=== PATIENT | female | born 1945 | race Caucasian/White ===

== ENCOUNTER 2021-04-15 12:58 | Emergency (ER) | payer MEDICARE, BC ==
[2021-04-15] MEDS ORDERED: methylPREDNISolone Sodium Succinate 125 MG/2 ML SDV IVPUSH STA (13:09)
[2021-04-15] MEDS ORDERED: Albuterol/Ipratropium 3.0-0.5 MG/3 ML Neb Soln NEB ONE ×4 (13:09→15:31)
--- NOTE | 2021-04-15 13:41 | EDM.PDOC ---
ED HPI GENERAL MEDICAL PROBLEM - General Chief Complaint: Respiratory Problem Stated Complaint: cough Time Seen by Provider: 04/15/21 13:28 Source of Information: Reports: Patient History Limitations: Reports: No Limitations - History of Present Illness INITIAL COMMENTS - FREE TEXT/NARRATIVE: This patient is a 76 year old female that presents to the ER. Patient reports for 5 days having wheezing, cough, and shortness of breath. She reports being seen in [place] 5 days ago and prescribed Dexamethasone and Azithromax. She reports today was the last dose. She reports that she is no better and that is why she came to the ER. Patient denies n, v, d, f, chest pain, abd pain, rashes, runny nose, congestion, drainage, lung history. Denies smoking. Onset Date: 04/10/21 Duration: Day(s): (5) Location: Reports: Chest Severity: Moderate Improves with: Reports: None Worsens with: Reports: None Associated Symptoms: Reports: Cough, Shortness of Breath. Denies: Confusion, Chest Pain, cough w sputum, Diaphoresis, Fever/Chills, Headaches, Loss of Appetite, Malaise, Nausea/Vomiting, Rash, Seizure, Syncope, Weakness - Related Data Allergies Allergy/AdvReac Type Severity Reaction Status Date / Time codeine Allergy Nausea and Verified 04/15/21 13:03 Vomiting Opioids - Morphine Analogues Allergy Nausea Verified 04/15/21 13:03 Home Meds: Home Meds Albuterol/Ipratropium [DuoNeb 3.0-0.5 MG/3 ML] 3 ml .XX Q4H PRN #60 neb 04/15/21 [Rx] atorvaSTATin [Lipitor] 10 mg PO BEDTIME 04/15/21 [History] dexAMETHasone [Dexamethasone] 2 mg PO DAILY 04/15/21 [History] predniSONE [Prednisone] 40 mg PO DAILY 3 Days #6 tablet 04/15/21 [Rx] Past Medical History HEENT History: Reports: Cataract, Impaired Vision Cardiovascular History: Reports: High Cholesterol - Past Surgical History HEENT Surgical History: Reports: Cataract Surgery GI Surgical History: Reports: Appendectomy, Colonoscopy Social & Family History - Tobacco Use Tobacco Use Status *Q: Never Tobacco User - Caffeine Use Caffeine Use: Reports: Soda - Recreational Drug Use Recreational Drug Use: No ED ROS GENERAL - Review of Systems Review Of Systems: See Below Constitutional: Reports: No Symptoms HEENT: Reports: No Symptoms Respiratory: Reports: Shortness of Breath, Wheezing, Cough. Denies: Pleuritic Chest Pain, Sputum, Hemoptysis Cardiovascular: Reports: No Symptoms Endocrine: Reports: No Symptoms GI/Abdominal: Reports: No Symptoms : Reports: No Symptoms Musculoskeletal: Reports: No Symptoms Skin: Reports: No Symptoms Neurological: Reports: No Symptoms Psychiatric: Reports: No Symptoms Hematologic/Lymphatic: Reports: No Symptoms Immunologic: Reports: No Symptoms ED EXAM, GENERAL - Physical Exam Exam: See Below Exam Limited By: No Limitations General Appearance: Alert, WD/WN, No Apparent Distress Eye Exam: Bilateral Eye: Normal Inspection, PERRL Ears: Normal External Exam, Normal Canal, Hearing Grossly Normal, Normal TMs Ear Exam: Bilateral Ear: Auricle Normal, Canal Normal, TM normal Nose: Normal Inspection, Normal Mucosa, No Blood Throat/Mouth: Normal Inspection, Normal Lips, Normal Teeth, Normal Gums, Normal Oropharynx, Normal Voice, No Airway Compromise Head: Atraumatic, Normocephalic Neck: Normal Inspection, Supple, Non-Tender, Full Range of Motion Respiratory/Chest: No Respiratory Distress, No Accessory Muscle Use, Chest Non- Tender, Wheezing Cardiovascular: Normal Peripheral Pulses, Regular Rate, Rhythm, No Edema, No Gallop, No JVD, No Murmur, No Rub Peripheral Pulses: 2+: Radial (L), Radial (R), Posterior Tibial (L), Posterior Tibial (R) GI/Abdominal: Soft, Non-Tender Back Exam: Normal Inspection, Full Range of Motion Extremities: Normal Inspection, Normal Range of Motion, Non-Tender, No Pedal Edema, Normal Capillary Refill Neurological: Alert, Oriented Psychiatric: Normal Affect, Normal Mood Skin Exam: Warm, Dry, Intact, Normal Color, No Rash Lymphatic: No Adenopathy Course - Vital Signs Last Recorded V/S: Last Vital Signs Temp 98.1 F 04/15/21 12:59 Pulse 81 04/15/21 12:59 Resp 20 04/15/21 17:19 BP 147/87 H 04/15/21 12:59 Pulse Ox 95 04/15/21 17:19 - Orders/Labs/Meds Orders: Active Orders 24 hr Category Date Time Status RT Aerosol Therapy [RC] ASDIRECTED Care 04/15/21 13:09 Active RT Aerosol Therapy [RC] ASDIRECTED Care 04/15/21 13:38 Active RT Aerosol Therapy [RC] ASDIRECTED Care 04/15/21 13:39 Active RT Aerosol Therapy [RC] ASDIRECTED Care 04/15/21 15:31 Active RT Post Treatment Assessment [RC] Click to Edit Care 04/15/21 17:44 Ordered RT Pre-Treatment Assessment [RC] Click to Edit Care 04/15/21 17:44 Ordered Chest 2V [CR] Stat Exams 04/15/21 13:09 Taken Chest w Cont [CT] Stat Exams 04/15/21 15:45 Taken Albuterol [Ventolin HFA] Med 04/15/21 17:43 Ordered 1 gm INH Q4H PRN Sodium Chloride 0.9% [Normal Saline] 500 ml Med 04/15/21 16:00 Active IV .BOLUS Medication Orders Albuterol (Albuterol 8 Gm Inhaler) 1 gm INH Q4H PRN PRN Reason: Dyspnea Sodium Chloride (Normal Saline) 500 mls @ 1,000 mls/hr IV .BOLUS KIMBERLY Last Admin: 04/15/21 16:14 Dose: 1,000 mls/hr Documented by: BRYAN Labs: Laboratory Tests 04/15/21 04/15/21 04/15/21 Range/Units 13:39 13:42 13:42 WBC 11.4 H (4.0-11.0) 10^3/uL RBC 4.74 (4.00-5.50) x10^6/uL Hgb 14.1 (12.0-16.0) g/dL Hct 41.2 (37.0-47.0) % MCV 86.9 (83.0-97.0) fL MCH 29.7 (27.0-32.0) pg MCHC 34.2 (32.0-36.0) g/dL RDW Coeff of [place] 13.2 (11.0-15.0) % Plt Count 231 (150-400) 10^3/uL Immature Gran % (Auto) 0.4 (0.0-4.9) % Neut % (Auto) 76.6 H (41-71) % Lymph % (Auto) 13.8 L (24-44) % [place] % (Auto) 9.0 (0-10) % Eos % (Auto) 0.0 (0-6) % Baso % (Auto) 0.2 (0-1) % Neut # (Auto) 8.73 H (1.80-8.00) x10^3/uL Lymph # (Auto) 1.57 (0.60-5.00) 10^3/uL [place] # (Auto) 1.02 (0.00-1.50) 10^3/uL Eos # (Auto) 0.00 (0.00-1.50) 10^3/uL Baso # (Auto) 0.02 (0.00-0.50) 10^3/uL Immature Gran # (Auto) 0.05 (0.00-0.49) 10^3/uL Sodium 143 (136-145) mEq/L Potassium 3.5 (3.5-5.0) mEq/L Chloride 106 (98-106) mEq/L Carbon Dioxide 26 (21-32) mmol/L BUN 26 H (7-18) mg/dL Creatinine 1.2 H (0.6-1.0) mg/dL Est Cr Clr Drug Dosing 34.02 mL/min Estimated GFR (MDRD) 44 L (>=60) mL/min Glucose 119 H (75-99) mg/dL Calcium 8.1 L (8.4-10.1) mg/dL Total Bilirubin 0.8 (0.0-1.0) mg/dL AST 26 (15-37) U/L ALT 34 (12-78) U/L Alkaline Phosphatase 84 (46-116) U/L Total Protein 7.2 (6.4-8.2) g/dL Albumin 3.7 (3.4-5.0) g/dL SARS CoV-2 RNA Rapid CARLOS Negative (NEGATIVE) Meds: Medications Generic Name Dose Route Start Last Admin Trade Name Freq PRN Reason Stop Dose Admin Albuterol 1 gm 04/15/21 17:43 Albuterol 8 Gm Inhaler INH Q4H PRN Dyspnea Sodium Chloride 500 mls @ 1,000 mls/hr 04/15/21 16:00 04/15/21 16:14 Normal Saline IV 1,000 mls/hr .BOLUS KIMBERLY Administration Discontinued Medications Generic Name Dose Route Start Last Admin Trade Name Freq PRN Reason Stop Dose Admin Albuterol/Ipratropium 3 ml 04/15/21 13:09 04/15/21 13:15 Albuterol/Ipratropium 3.0-0.5 Mg/3 Ml Neb Soln NEB 04/15/21 13:10 3 ml ONETIME ONE Administration Albuterol/Ipratropium 3 ml 04/15/21 13:38 04/15/21 13:41 Albuterol/Ipratropium 3.0-0.5 Mg/3 Ml Neb Soln NEB 04/15/21 13:39 3 ml ONETIME ONE Administration Albuterol/Ipratropium 3 ml 04/15/21 13:38 04/15/21 13:41 Albuterol/Ipratropium 3.0-0.5 Mg/3 Ml Neb Soln NEB 04/15/21 13:39 3 ml ONETIME ONE Administration Albuterol/Ipratropium 3 ml 04/15/21 15:31 04/15/21 15:33 Albuterol/Ipratropium 3.0-0.5 Mg/3 Ml Neb Soln NEB 04/15/21 15:32 3 ml ONETIME ONE Administration Albuterol/Ipratropium 2 packet 04/15/21 17:43 Take Home: Albuterol/Ipratropium 3.0-0.5 Mg/3 Ml Neb Soln, 4 Neb Pack NEB 04/15/21 17:44 ONETIME ONE Iopamidol 100 ml 04/15/21 16:16 04/15/21 16:50 Iopamidol 755 Mg/Ml 100 Ml Bottle IVPUSH 04/15/21 16:17 100 ml ONETIME ONE Administration Methylprednisolone Sodium Succinate 125 mg 04/15/21 13:09 04/15/21 13:15 Methylprednisolone Sodium Succinate 125 Mg/2 Ml Sdv IVPUSH 04/15/21 13:10 125 mg NOW STA Administration Prednisone 2 packet 04/15/21 17:43 Take Home: Prednisone 20 Mg, 2 Tab Pack PO 04/15/21 17:44 ONETIME ONE - Radiology Interpretation Free Text/Narrative:: CXR: Linear atelectasis verus scarring in the left midlung; otherwise clear lungs. CT with Contrast Chest: No PE, No pneumonia. Chronic Airway disease, thickening of distal esophagus consistent with GERD. CT Results Date: 04/15/21 CT Results Time: 17:31 - Re-Assessments/Exams Free Text/Narrative Re-Assessment/Exam: 04/15/21 13:49 After initial breathing tx, patient wheezes more audible. Still moderate wheezing throughout, will give additional breathing treatments. 04/15/21 14:18 This patient is moving much more air, less wheezing throughout. She reports she feels a little better. She is coughing more and moving more air. Oxygen saturation is 97% on RA at this time. No acute distress. Will extend ER and recheck to ensure no rebound. Patient reports the steroids given are making her jittery. 04/15/21 15:38 Patient had temporary coughing spell that lasted a few minutes. Patient has audible wheezes throughout, but moving much more air than initial presentation. She does not appear in distress. Another treatment has been ordered due to her coughing spell and mild audible wheezes throughout. Will continue to observe extended ER at this time and evaluate again. With patient wheezing, oxygen saturation of 93%, coughing spell, possible atelectasis, and hypocalcemia I will CT lungs with contrast IV. 04/15/21 17:53 Patient lungs are clear. She reports she is feeling better. Oxygen saturation is 97% RA. Discussed all results with patient in detail. Will discharge home. Departure - Departure Time of Disposition: 17:45 Disposition: Home, Self-Care 01 Condition: Good Clinical Impression: Acute bronchiolitis Qualifiers: Bronchiolitis organism: unspecified organism Qualified Code(s): J21.9 - Acute bronchiolitis, unspecified - Discharge Information *PRESCRIPTION DRUG MONITORING PROGRAM REVIEWED*: Not Applicable *COPY OF PRESCRIPTION DRUG MONITORING REPORT IN PATIENT REBECCA: Not Applicable Prescriptions: Albuterol/Ipratropium [DuoNeb 3.0-0.5 MG/3 ML] 3 ml .XX Q4H PRN #60 neb PRN Reason: Shortness Of Breath predniSONE [Prednisone] 40 mg PO DAILY 3 Days #6 tablet Instructions: Shortness of Breath, Adult, [id number], Acute Bronchitis, Adult, [id number], Asthma, Adult Referrals: Bridgett Whyte NP [Primary Care Provider] - Forms: ED Department Discharge Additional Instructions: Followup with your primary care provider on Saturday Return to your nearest ER for increased shortness of breath, difficulty breathing, fever, chest pain, or other concerns Go home to a nice cool house and rest Avoid outside and heat Pro-Air inhaler 1-2 puffs every 4-6 hours as needed for shortness of breath, coughing, or wheezing #1 take home Duoneb 1 neb every 4 hours as needed for shortness of breath, coughing, or wheezing #8 take home #60 sent to pharmacy Prednisone 20mg take 2 pills once a day starting tomorrow #4 take home (total 5 days, remaining sent to pharmacy) Neb Machine #1 take home Sepsis Event Note (ED) - Evaluation Sepsis Screening Result: No Definite Risk - Focused Exam Vital Signs: Vital Signs Temp Pulse Resp BP Pulse Ox 04/15/21 17:19 20 95 04/15/21 14:15 18 96 04/15/21 13:24 18 96 04/15/21 12:59 98.1 F 81 22 H 147/87 H 94 L - My Orders Last 24 Hours: My Active Orders 04/15/21 13:09 RT Aerosol Therapy [RC] ASDIRECTED Chest 2V [CR] Stat 04/15/21 13:38 RT Aerosol Therapy [RC] ASDIRECTED 04/15/21 13:39 RT Aerosol Therapy [RC] ASDIRECTED 04/15/21 15:31 RT Aerosol Therapy [RC] ASDIRECTED 04/15/21 15:45 Chest w Cont [CT] Stat 04/15/21 16:00 Sodium Chloride 0.9% [Normal Saline] 500 ml IV .BOLUS 04/15/21 17:43 Albuterol [Ventolin HFA] 1 gm INH Q4H PRN 04/15/21 17:44 RT Post Treatment Assessment [RC] Click to Edit RT Pre-Treatment Assessment [RC] Click to Edit - Assessment/Plan Last 24 Hours: My Active Orders 04/15/21 13:09 RT Aerosol Therapy [RC] ASDIRECTED Chest 2V [CR] Stat 04/15/21 13:38 RT Aerosol Therapy [RC] ASDIRECTED 04/15/21 13:39 RT Aerosol Therapy [RC] ASDIRECTED 04/15/21 15:31 RT Aerosol Therapy [RC] ASDIRECTED 04/15/21 15:45 Chest w Cont [CT] Stat 04/15/21 16:00 Sodium Chloride 0.9% [Normal Saline] 500 ml IV .BOLUS 04/15/21 17:43 Albuterol [Ventolin HFA] 1 gm INH Q4H PRN 04/15/21 17:44 RT Post Treatment Assessment [RC] Click to Edit RT Pre-Treatment Assessment [RC] Click to Edit Plan: PLEASE SEE RN NOTE FOR PFSH.
[2021-04-15] MEDS ORDERED: Sodium Chloride 0.9% 500 ML IV SCH (16:00)
[2021-04-15] MEDS ORDERED: Iopamidol 755 Mg/ML 100 ML Bottle IVPUSH ONE (16:16)
[2021-04-15] MEDS ORDERED: predniSONE 20 MG Tab ONE (17:26)
[2021-04-15] MEDS ORDERED: Albuterol/Ipratropium 3.0-0.5 MG/3 ML Neb Soln ONE (17:26)
[2021-04-15] MEDS ORDERED: Take Home: Albuterol/Ipratropium 3.0-0.5 MG/3 ML Neb Soln, 4 Neb Pack NEB ONE (17:43)
[2021-04-15] MEDS ORDERED: Take Home: predniSONE 20 MG, 2 Tab Pack PO ONE (17:43)
[2021-04-15] MEDS ORDERED: Albuterol 8 GM Inhaler INH PRN (17:43)
== END 2021-04-15 18:10 | disposition home or self-care (01) ==
LOC: SUPCPDRO 12:58 → CC.ED 12:58
DX: J21.9 Acute bronchiolitis, unspecified (principal); E78.00 Pure hypercholesterolemia, unspecified; Z79.899 Other long term (current) drug therapy; Z88.5 Allergy status to narcotic agent; Z20.822 Contact with and (suspected) exposure to COVID-19
CPT/HCPCS: 36415; 71046; 71260; 80053; 85025; 94640; 96374; 99285; A9270; J2930; J7040; J7512; Q9967; U0002; 99284; J7620-GY